=== PATIENT | female | born 1980 | race Caucasian/White ===

== ENCOUNTER 2016-09-25 06:00 | Day surgery (SDC) | payer OTHER ==
[2016-09-20 08:48] VITALS: BP 111/72
[2016-09-24 14:46] LABS: BLOOD UREA NITROGEN 12 mg/dL (7-18)
[~2016-09-25] VITALS: Ht 165.1 cm; Wt 63.0 kg
[~2016-09-25 06:00] MED LIST: STEROID TD
[2016-09-25] MEDS ORDERED: LACTATED RINGERS 1,000 ML IV SCH (06:41)
[2016-09-25 06:43] VITALS: BP 111/72
[2016-09-25] MEDS ORDERED: LIDOCAINE/PF 1%-EPI 1:200K, 30ML ONE (07:00)
[2016-09-25] MEDS ORDERED: FLUORESCEIN SODIUM 500 MG/5 ML ONE (07:00)
[2016-09-25] MEDS ORDERED: SCOPOLAMINE PATCH, 1.5MG PATCH.TD72 TD ONE ×2 (07:16→10:34)
[2016-09-25] MEDS ORDERED: METRONIDAZOLE PMX 500MG/100ML 100 ML ONE (07:18)
[2016-09-25] MEDS ORDERED: FENTANYL PF 250 MCG/5ML ONE (07:21)
[2016-09-25] MEDS ORDERED: MIDAZOLAM 1 MG/ML, 2ML ONE (07:21)
[2016-09-25] MEDS ORDERED: LIDOCAINE 1%-EPI 1:100K, 30ML INFIL ONE (07:50)
[2016-09-25] MEDS ORDERED: ONDANSETRON 2MG/ML, 2ML IVPush PRN ×2 (08:00→13:00)
[2016-09-25] MEDS ORDERED: OXYcodone 5 MG/5 ML ORAL.SOL UDC PO PRN (08:00)
[2016-09-25] MEDS ORDERED: PROMETHAZINE 25 MG/ML, 1ML IV PRN (08:00)
[2016-09-25] MEDS ORDERED: MIDAZOLAM 1 MG/ML, 2ML IV PRN (08:00)
[2016-09-25] MEDS ORDERED: ALBUTEROL/IPRATROPIUM 2.5MG/0.5MG, 3 ML NPPB PRN (08:00)
[2016-09-25] MEDS ORDERED: ACETAMINOPHEN 325 MG TABLET PO PRN (08:00)
[2016-09-25] MEDS ORDERED: LABETALOL 5MG/ML, 20ML IV PRN (08:00)
[2016-09-25] MEDS ORDERED: METOCLOPRAMIDE 5 MG/ML, 2ML IV PRN (08:00)
[2016-09-25] MEDS ORDERED: hydrALAzine 20 MG/ML, 1ML IV PRN (08:00)
[2016-09-25] MEDS ORDERED: MEPERIDINE/PF 25MG/0.5ML IVPush PRN (08:00)
[2016-09-25] MEDS ORDERED: ACETAMINOPHEN 325 MG TABLET ONE (09:00)
[2016-09-25] MEDS ORDERED: FENTANYL PF 100 MCG/2ML ONE (09:00)
[2016-09-25] MEDS ORDERED: ACETAMINOPHEN 650 MG/20.3 ML UDC ONE (09:00)
[2016-09-25] MEDS ORDERED: OXYcodone 5 MG/5 ML ORAL.SOL UDC ONE (09:01)
[2016-09-25] MEDS: FENTANYL PF 100 MCG/2ML IV PRN ×2 (09:05→09:15)
[2016-09-25] MEDS ORDERED: HYDROmorphone 2 MG/ML, 1ML ONE (09:27)
[2016-09-25] MEDS: HYDROmorphone 1 MG/ML, 1ML IV PRN ×3 (09:29→09:40)
[2016-09-25] MEDS ORDERED: KETOROLAC 30 MG/1 ML IVPush PRN (13:00)
[2016-09-25] MEDS ORDERED: DIPHENHYDRAMINE 50 MG/ML, 1ML IVPush PRN (13:00)
[2016-09-25] MEDS ORDERED: PROMETHAZINE 25 MG SUPP PR PRN (15:00)
[2016-09-25] MEDS ORDERED: PROPOFOL 10 MG/ML, 20ML ONE (15:22)
[2016-09-25] MEDS ORDERED: ONDANSETRON 2MG/ML, 2ML ONE (15:22)
[2016-09-25] MEDS ORDERED: EPHEDRINE 50 MG/ML, 1ML ONE (15:22)
[2016-09-25] MEDS ORDERED: SUCCINYLCHOLINE 20 MG/ML, 10ML ONE (15:22)
[2016-09-25] MEDS ORDERED: CEFAZOLIN 1,000 MG ONE (15:22)
[2016-09-25] MEDS ORDERED: KETOROLAC 30 MG/1 ML ONE (15:22)
[2016-09-25] MEDS ORDERED: DEXAMETHASONE 4 MG/ML, 1ML ONE (15:22)
== END 2016-09-25 17:25 | disposition home or self-care (01) ==
LOC: OUT 06:00
PROVIDERS: ATTEND Obstetrics & Gynecology Gynecology
DX: N92.1 Excessive and frequent menstruation with irregular cycle (principal); N94.6 Dysmenorrhea, unspecified; N94.10 Unspecified dyspareunia; N81.5 Vaginal enterocele
CPT/HCPCS: 36415; 58263; 80048; 81003; 84703; 85014; 88307; J0330; J0690; J1100; J1170; J1885; J2250; J2405; J2704; J3010; J3490; J7120